=== PATIENT | male | born 1940 | race Caucasian/White ===

== ENCOUNTER 2016-03-19 11:22 | Emergency (ER) | payer OTHER ==
[~2016-03-19] VITALS: Ht 182.9 cm; Wt 78.6 kg
[~2016-03-19 11:22] MED LIST: ALBINS INH; CHOL100010 PO; CLX/20 PO; DILT300C PO; FAMO20TA9 PO; FINA5TAB4 PO; GLIP-197 PO; IPRA1AER2 INH; LEVE500T13 PO; LISI-729 PO; LPT40 PO; OXGN; PHEN-876 PO; PRED-301 PO; SITA50TA5 PO; SOLI5TAB2 PO; SYMIN160 INH; TAMS0.4C38 PO; TRAMTAB5 PO
[2016-03-19 11:30] VITALS: TEMP 36.6; Ht 182.9 cm; Wt 78.6 kg
[2016-03-19 11:58] LABS: HEMATOCRIT 38.2 % (42-52); MEAN CELL VOLUME 82.5 fL (80-100); MEAN CORPUSCULAR HEMOGLOBIN 25.7 pg (25-34); MEAN CORPUSCULAR HGB CONC 31.2 g/dl (32-36); MEAN PLATELET VOLUME 10.2 fL (7.4-10.4); PLATELET COUNT 196 K/uL (130-400); RED BLOOD COUNT 4.63 M/uL (4.7-6.1); WHITE BLOOD COUNT 17.41 K/uL (4.8-10.8)
[2016-03-19 12:06] LABS: BUN/CREATININE RATIO 17.1 (10-20); CALCIUM 8.6 mg/dl (8.5-10.1); CREATININE 1.4 mg/dl (0.60-1.40); POTASSIUM 4.2 mmol/L (3.5-5.1)
[2016-03-19 12:09] VITALS: O2SAT 100
--- NOTE | 2016-03-19 12:13 | EMERGENCY ROOM VISIT NOTE ---
History Report prepared by Scribe: Nils Martel Under the Supervision of: Dr. Joe Otero M.D. First contact with patient: 11:45 Chief Complaint: CHEST PAIN Stated Complaint: CHEST PRESSURE/NAUSEA/ SOB Nursing Triage Summary: chest pressure that started at 8 am with nausea and sob. Pressure relieved with 1 nitro and 4 baby asprins. History of Present Illness The patient is a 75 year old male who presents to the Emergency Room via EMS with complaints of persistent diffuse chest pain starting about 3 and a half hours ago. The patient also complains of shortness of breath, diffuse abdominal pain, and nausea. He received 1 nitro and 4 baby aspirins in route to the Emergency Room with some relief. He currently reports a mild chest pain. He denies any recent stress tests. The patient denies fevers, chills, or any other complaints. Source of History: patient Onset: about 3 and a half hours ago Position: chest (diffuse) Symptom Intensity: mild Timing: other (persistent) Modifying Factors (Relieving): other (1 nitro and 4 baby aspirins in route to the Emergency Room with some relief.) Associated Symptoms: + SOB, + abdominal pain, + nausea, No chills, No fevers Review of Systems See HPI for pertinent positives & negatives. A total of 10 systems reviewed and were otherwise negative. Past Medical & Surgical Medical Problems: (1) AAA (abdominal aortic aneurysm) (2) Anxiety (3) Aortic insufficiency (4) Aortic root enlargement (5) Benign hypertension (6) BPH (benign prostatic hypertrophy) (7) Cerebrovascular dural AV fistula (8) Chest pain (9) Chronic Kidney Disease, Stage Iii (Moderate) (10) COPD (chronic obstructive pulmonary disease) (11) Depression (12) Diabetic polyneuropathy (13) Diastolic heart failure (14) DM type 2 (diabetes mellitus, type 2) (15) Epilepsy Unspec W/O Mention Intractable Epilepsy (16) Esophageal Reflux (17) Fatty infiltration of liver (18) Femur fracture (19) GERD (gastroesophageal reflux disease) (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 (21) History of Clostridium difficile (22) History of CVA (cerebrovascular accident) (23) Hyperlipidemia Nec/Nos (24) Hypertensive urgency (25) Osteoarthritis (26) Osteoporosis Nos Surgical Problems: (1) H/O brain surgery (2) H/O colonoscopy with polypectomy (3) History of repair of hip fracture (4) S/P cataract surgery (5) S/p transcatheter placement of intravascular stents intracranial Family History Diabetes mellitus FH: chronic respiratory condition FH: heart disease Hypertension MOTHER Stroke MOTHER Social History Smoking Status: Former Smoker Alcohol Use: none Drug Use: none Marital Status: Housing Status: lives with significant other Occupation Status: retired Current/Historical Medications Scheduled Aspirin (Aspirin), 325 MG PO DAILY Atorvastatin (Atorvastatin Calcium), 40 MG PO HS Budesonide/Formoterol Fumarate (Symbicort 160/4.5 Inhaler ), 2 PUFFS INH BID Cholecalciferol (Vitamin D), 1 CAP PO QAM Citalopram (Citalopram Hydrobromide), 20 MG PO QAM Diltiazem Hcl Coated Beads (Diltiazem Hcl Er), 300 MG PO HS Famotidine (Pepcid), 20 MG PO Q12 Finasteride (Proscar), 5 MG PO HS Glipizide (Glipizide Er), 5 MG PO QAM Levetiracetam (Keppra), 750 MG PO BID Lisinopril (Zestril), 5 MG PO QAM Oxygen (Oxygen), 2 LITERS NA HS Prednisone (Prednisone), 5 MG PO QAM Sitagliptin-Metformin Hcl (Janumet), 1 TAB PO BID Solifenacin Succinate (Vesicare), 5 MG PO HS Tamsulosin Hcl (Flomax), 0.4 MG PO HS Scheduled PRN Albuterol Sulf (Albuterol Sulfate), 1 DOSE INH QID PRN for Shortness of Breath Ipratropium-Albuterol (Combivent Respimat), 1 PUFF INH QID PRN for SOB/Whz/Cough Allergies Coded Allergies: No Known Drug Allergy (Verified Allergy, Unknown, none, 03/19/16) Physical Exam Vital Signs Date Time Temp Pulse Resp B/P Pulse Ox O2 Delivery O2 Flow Rate FiO2 03/19/16 16:39 76 20 108/72 99 Nasal Cannula 2.0 03/19/16 16:27 78 20 99/66 98 Nasal Cannula 2.0 03/19/16 15:01 70 18 103/65 97 Nasal Cannula 2.0 03/19/16 14:56 78 84/61 03/19/16 14:47 83 110/67 03/19/16 14:45 85 22 125/73 97 Nasal Cannula 2.0 03/19/16 13:22 79 03/19/16 13:04 80 18 114/83 100 Nasal Cannula 2.0 03/19/16 12:09 100 Nasal Cannula 2.0 03/19/16 11:34 95 Room Air 03/19/16 11:34 81 03/19/16 11:30 36.6 84 18 117/82 95 Room Air Physical Exam CONSTITUTIONAL: No acute distress HEENT: No icterus, moist mucous membranes NECK: No meningismus, trachea is midline. CARDIOVASCULAR: Regular rate, normal perfusion RESPIRATORY: Unlabored breathing. Clear to auscultation. GASTROINTESTINAL: Non-tender GENITOURINARY: No flank tenderness MUSCULOSKELETAL: Full range of motion NEUROLOGIC: No acute gross focal deficits. PSYCHIATRIC: Normal affect SKIN: Normal for ethnicity. Medical Decision & Procedures ER Provider Diagnostic Interpretation: X-ray results as stated below per interpretation by me and the radiologist. CHEST ONE VIEW PORTABLE CLINICAL HISTORY: cp dyspnea COMPARISON STUDY: 10/03/2015 FINDINGS: The bones soft tissues and hemidiaphragms are normal. The cardiomediastinal silhouette is normal. The lungs are clear. The pulmonary vasculature is normal. IMPRESSION: Negative chest. Electronically signed by: Carlos Ahn M.D. 03/19/2016 12:09 PM Dictated Date/Time: 03/19/2016 12:[address] results as stated below per my review and radiologist interpretation. CT SCAN OF THE CHEST WITHOUT IV CONTRAST CLINICAL HISTORY: Dyspnea. Atypical chest pain. COMPARISON STUDY: Chest CT scans dated 05/19/2015 and 10/27/2012. TECHNIQUE: CT scan of the thorax was performed from the thoracic inlet to the upper abdomen. Images are reviewed in the axial, sagittal, and coronal planes. IV contrast was not administered for this examination as per the referring clinician. CT DOSE: 261.53 mGycm FINDINGS: Thyroid: Imaged portions of the thyroid gland are normal in size and attenuation. Thoracic aorta: There is atherosclerotic calcification of the thoracic aorta. There is aneurysmal dilatation of the ascending thoracic aorta which measures up to 5 cm in diameter. The aortic arch and the descending thoracic aorta normal in caliber. The mid arch measures up to 3.5 cm, and the descending thoracic aorta measures up to 3.1 cm. 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 There is a small volume of periaortic hemorrhage indicating leakage/rupture. There is also evidence of dissection into the pericardium with hemopericardium. The arch demonstrates standard 3-vessel arch anatomy. Heart: The heart is enlarged and and there is a moderate volume of hemopericardium. The coronary arteries and aortic valve leaflets are densely calcified. There is diminished attenuation of the cardiac blood pool as compared to the myocardium suggesting anemia. The main pulmonary arteries appear dilated suggesting pulmonary hypertension. Lungs and pleural spaces: There is advanced emphysema. There is a trace right pleural effusion, which has been seen previously. Focal subpleural scarring versus round atelectasis is again noted at the right lung base and is been present dating back to 2012. A 4 mm nodule in the right middle lobe on image #193 is unchanged. No airspace consolidation is identified typical for pneumonia. The trachea and central airways are clear. Mediastinum: There is no mediastinal lymphadenopathy. Jelly: Not well assessed without IV contrast. Axillae: There is no axillary lymphadenopathy. Upper abdomen: The partially imaged kidneys dementia cortical atrophy. A 4.0 cm cyst is noted in the left upper pole. A 1.5 cm cyst is noted in the right upper pole. There is a tiny hiatal hernia. Skeletal structures: The skeletal structures are osteopenic. No lytic or blastic bony lesions are seen. IMPRESSION: 1. 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 There is a small volume of periaortic hemorrhage indicating leakage/rupture. 2. Findings are consistent with a type A aortic dissection, with a flap identified on these unenhanced images. There is hemopericardium, indicating dissection into the pericardial space. 3. Cardiomegaly with evidence of pulmonary artery hypertension. 4. Advanced emphysema. 5. There is a trace right pleural effusion with chronic scarring/round atelectasis at the right lung base. This has been present dating back to 2012. 6. A 4 mm right middle lobe pulmonary nodule is unchanged from 05/19/2015. This can be followed if clinically warranted. See below. 7. Additional changes as above. Please refer to below summary of Fleischner criteria recommendations for follow-up of incidental CT nodules (Perico Fernández, Guidelines for management of small pulmonary nodules detected on CT scans: A statement from the Fleischner Society, Radiology 237: [phone].) Low Risk Patient: Minimal or no smoking or other known risk factors for malignancy <=4 mm: No follow-up needed. >4-6 mm: Initial follow-up CT at 12 months; if unchanged, no further follow-up. >6-8 mm: Initial follow-up CT at 6-12 months then at 18-24 months if no change. >8 mm: Follow-up CT at \R\3, 9, 24 months, or PET and/or biopsy. High Risk Patient: History of smoking or other known risk factors <=4 mm: Follow-up at 12 months; if unchanged, no further follow-up. >4-6 mm: Initial follow-up CT at 6-12 months then at 18-24 months if no change. >6-8 mm: Initial follow-up CT at 3-6 months then at 9-12 and 24 months if no change. >8 mm: Same as low risk patient. Note: Nodule size measured as average of length and width. Ground glass or partly solid nodules may require longer follow-up to exclude indolent adenocarcinoma. Emergent findings were called to Dr. Otero in the emergency department at 15:55 on 03/19/2016. Electronically signed by: Kishore Javier M.D. 03/19/2016 4:08 PM Dictated Date/Time: 03/19/2016 3:[address] SCAN OF THE ABDOMEN AND PELVIS WITHOUT CONTRAST CLINICAL HISTORY: abdominal pain NAUSEA COMPARISON STUDY: 01/06/2015 TECHNIQUE: CT scan of the abdomen and pelvis was performed from the lung bases to the proximal femurs. Images are reviewed in the axial, sagittal, and coronal planes. IV contrast was not administered for this examination. CT DOSE: 435.07 mGycm FINDINGS: Lower chest: The heart is mildly enlarged. There is a small pericardial effusion. There is emphysema. There are right basilar airspace opacities, likely atelectatic. Liver: The unenhanced liver is normal in size, contour, and attenuation. There is no intrahepatic biliary ductal dilatation. Gallbladder: Unremarkable. Spleen: Normal in size and attenuation. Pancreas: Unremarkable. Adrenal glands: Unremarkable. Kidneys: There is a 1 cm lower pole left renal calculus. No ureteral or bladder calculi are visualized. There are bilateral renal masses, likely representing cysts. The largest arises from the upper pole the left kidney measuring 34 mm. Bowel: There are no transition zones to indicate bowel obstruction. The appendix appears normal. There is mild fecal retention. There is no evidence of acute diverticulitis. There is mild fecal is age and of small bowel loops. This was present on the prior study and may indicate a motility disorder. Peritoneum: There is no intraperitoneal free air or abdominal ascites. There is subtle nonspecific edema in the region the kulwinder hepatis. Vasculature: There is a 31 mm infrarenal abdominal aortic aneurysm. Adenopathy: None. Pelvic viscera: There are prostate calcifications present. There is a small bladder diverticula present. Skeletal structures: There are postsurgical changes of a left hip pinning. IMPRESSION: 1. No evidence of bowel obstruction. No evidence of free air 2. Normal appendix 3. Small bowel feces sign. A motility disorder cannot be excluded 4. Fecal retention 5. Emphysema 6. Right basal airspace opacity possibly atelectatic 7. 31 mm infrarenal abdominal aortic aneurysm 8. Mild nonspecific edema in the region the kulwinder hepatis 9. 1 cm lower pole left renal calculus 10. Bilateral renal masses, likely representing cysts 11. Small pericardial effusion Electronically signed by: Pawan Parker M.D. 03/19/2016 3:49 PM Dictated Date/Time: 03/19/2016 3:42 PM Laboratory Results 03/19/16 11:40 Red Blood Count 4.63, Mean Corpuscular Volume 82.5, Mean Corpuscular Hemoglobin 25.7, Mean Corpuscular Hemoglobin Concent 31.2, Mean Platelet Volume 10.2 03/19/16 11:40 Test 03/19/16 11:40 03/19/16 12:16 03/19/16 14:02 03/19/16 17:00 White Blood Count 17.41 K/uL (4.8-10.8) Red Blood Count 4.63 M/uL (4.7-6.1) Hemoglobin 11.9 g/dL (14.0-18.0) Hematocrit 38.2 % (42-52) Mean Corpuscular Volume 82.5 fL (80-100) Mean Corpuscular Hemoglobin 25.7 pg (25-34) Mean Corpuscular Hemoglobin Concent 31.2 g/dl (32-36) Platelet Count 196 K/uL (130-400) Mean Platelet Volume 10.2 fL (7.4-10.4) RDW Standard Deviation 47.8 fL (36.4-46.3) RDW Coefficient of Variation 15.9 % (11.5-14.5) Neutrophils % (Manual) 84.1 % Lymphocytes % (Manual) 10.6 % Monocytes % (Manual) 3.5 % Eosinophils % (Manual) 0.9 % Myelocytes % 0.9 % Neutrophils # (Manual) 14.64 K/uL (1.4-6.5) Total Absolute Neutrophils 14.64 K/uL (1.4-6.5) Lymphocytes # (Manual) 1.85 K/uL (1.2-3.4) Total Absolute Lymphocytes 1.85 K/uL (1.2-3.4) Monocytes # (Manual) 0.61 K/uL (0.11-0.59) Eosinophils # (Manual) 0.16 K/uL (0-0.5) Myelocytes # 0.16 K/uL (0-0) Poikilocytosis PRESENT Anion Gap 9.0 mmol/L (3-11) Est Creatinine Clear Calc Drug Dose 49.3 ml/min Estimated GFR () 56.2 Estimated GFR (Non- 48.5 BUN/Creatinine Ratio 17.1 (10-20) Calcium Level 8.6 mg/dl (8.5-10.1) Prothrombin Time 11.5 SECONDS (9.0-12.0) Prothromb Time International Ratio 1.1 (0.9-1.1) Activated Partial Thromboplast Time 22.3 SECONDS (21.0-31.0) Partial Thromboplastin Ratio 0.9 Troponin I 0.071 ng/ml (0-0.045) Creatine Kinase MB Ratio (0-3.0) Labs reviewed by ED physician. Medications Administered Medications (Trade) Dose Ordered Sig/Roseann Route Start Time Stop Time Status Last Admin Dose Admin Ondansetron HCl (Zofran Inj) 4 mg NOW STAT IV 03/19/16 12:59 03/19/16 13:02 DC 03/19/16 13:05 4 MG Nitroglycerin (Nitrostat Tab) 0.4 mg STK-MED ONCE .ROUTE 03/19/16 14:36 03/19/16 14:37 DC 03/19/16 14:45 0.4 MG Ondansetron HCl (Zofran Inj) 4 mg Q6H PRN IV 03/19/16 15:15 03/19/16 18:34 DC 03/19/16 16:55 4 MG ECG Indication: chest pain Rate (beats per minute): 84 Rhythm: normal sinus Findings: nonspecific-ST abn, no ectopy, other (Normal axis) Change: Repeat EKG showed sinus rhythm, 83 beats per minute, nonspecific ST anterolateral changes. ED Course 1145: Past medical records reviewed. The patient was evaluated in room C01B. A complete history and physical examination was performed. 1259: Zofran Inj 4 mg IV 1342: I discussed the patient's case with [facility] Hospitalist Service. 1417: Upon reexamination the patient is resting comfortably. I discussed results and treatment plan with the patient. He verbalizes agreement and understanding. The patient will be evaluated for further management. I discussed the patient's case with Dr. Byers, polisher and buffer with [facility]. 1444: Dr. Byers is currently at bedside. 1555: Dr. Javier, radiologist with [facility], gave a verbal report of the patient's CT scan. 1614: I discussed the patient's case with Dr. Marino, Emergency Department Physician with [facility]. Currently arranging transportation. 1620: I spoke to the nursing supervisor grips about transferring the patient to [facility]. 1620: I discussed results and treatment plan with the patient and his family. I also discussed the patient's possible outcome due to his CT findings. They verbalize agreement and understanding. The patient will be transferred to [facility] for further management. 1704: The patient left via [facility] ground. Medical Decision Differential diagnosis includes but is not limited to heart disease. 75-year-old presented to the emergency room for evaluation of roughly 2 hours of mild retrosternal chest discomfort. He notes he has no discomfort at this time and suspects liver likely nothing going on. Patient minimization of his symptoms and quite normal demeanor interactions was concerning in the context of his age and past medical history. 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 Both he and his are uncertain about the risks and benefits as well as treatment decisions regarding his anticoagulation. His first troponin was noted to be normal with nonspecific EKG findings. On reexamination , patient continued to appear well and have no complaints although there was a nonspecific suspects qualities to his presentation for serious disease. I subsequently ordered a repeat EKG and second troponin about the same time admitting the patient to the hospital. He remained hemodynamically stable. I emphasized the patient that should he be having chest pain or concerns facility nursing staff know right away. Repeat EKG was concerning for lateral changes. Attending [facility] hospitalist physician was notified of this and consultation obtained with Dr. Byers who kindly came immediately to the patient's bedside. Second troponin noted to be elevated. I later received a call from radiologist with a verbal report of a thoracic dissection with extension into the pericardium. I immediately arranged transfer to [facility] where patient's prior records are located. Patient and no prior history of thoracic aneurysm which is been followed for a long time and for which no interventions were advised. I emphasized that the prognosis is poor despite our best efforts. Patient's pressure remained satisfactory while receiving IV fluids. 2 lines were obtained as a precautionary measure. Heart rate remained about 74. Esmolol drip prepared with clinical pharmacist (short acting) and provided to the transportation crew. It is noted that I was at the bedside at the time of departure and patient appeared well in no distress with normal vital signs. I discussed the esmolol drip was only to be used if systolic blood pressure can be kept above 100. Consults Time Called: 1340 Consulting Physician: [facility] Returned Call: 1342 I discussed the patient's case with [facility]. Additional Consults: Time Called: 1404 Consulted Physician: Dr. Byers, polisher and buffer with [facility] Returned Call: 1417 Additional Comments: I discussed the patient's case with Dr. Byers, polisher and buffer with [facility]. Time Called: 1610 Consulted Physician: Dr. Marino, Emergency Department Physician with [facility] Returned Call: 1616 Additional Comments: I discussed the patient's case with Dr. Marino, Emergency Department Physician with [facility]. Currently arranging transportation. Impression Primary Impression: Precordial chest pain Additional Impression: Dissection of aorta Critical Care I have personally spent greater than 60 minutes of critical care time in the direct management of this patient. This includes bedside care, interpretation of diagnostic studies, and testing, discussion with consultants, patient, and family members, and other required patient management activities. This 60 minutes is in excess of all separately billable procedures. Scribe Attestation The scribe's documentation has been prepared under my direction and personally reviewed by me in its entirety. I confirm that the note above accurately reflects all work, treatment, procedures, and medical decision making performed by me. Departure Information Dispostion Transfer Acute Care Facility Referrals Mehreen Walton M.D. (PCP) Patient Instructions My [facility] Problem Qualifiers
[2016-03-19] MEDS ORDERED: CHOL100010 PO (12:18)
[2016-03-19 12:25] LABS: COMPLETE YES; EOSINOPHIL % 0.9 %; LYMPH ABS # 1.85 K/uL (1.2-3.4); LYMPHOCYTE % 10.6 %; MYELOCYTE % 0.9 %; NEUTROPHILS % 84.1 %; POIKILOCYTOSIS PRESENT
[2016-03-19 12:41] LABS: INR 1.1 (0.9-1.1); PARTIAL THROMBOPLASTIN RATIO 0.9; PROTHROMBIN TIME (PATIENT) 11.5 SECONDS (9.0-12.0)
[2016-03-19] MEDS ORDERED: ONDANSETRON INJ 2 MG/ML 2 ML VIAL IV STA (12:59)
[2016-03-19] MEDS ORDERED: NITROGLYCERIN 0.4 MG SL PER TAB CHARGE ONE (14:36)
[2016-03-19] MEDS ORDERED: ONDANSETRON INJ 2 MG/ML 2 ML VIAL IV PRN (15:15)
[2016-03-19] MEDS ORDERED: ACETAMINOPHEN 325 MG TAB PO PRN (15:15)
[2016-03-19] MEDS ORDERED: NITROGLYCERIN 0.4 MG SL PER TAB CHARGE SL PRN (15:15)
[2016-03-19] MEDS ORDERED: KPP/750 PO (15:19)
[2016-03-19] MEDS ORDERED: ASPI325T4 PO (15:25)
[2016-03-19] MEDS ORDERED: GLUCAGON FOR INJ 1 MG VIAL SQ PRN (15:30)
[2016-03-19] MEDS ORDERED: DEXTROSE 50% 50 ML SYR IV PRN (15:30)
[2016-03-19] MEDS ORDERED: GLUCOSE 10 TABS/TUBE PO PRN (15:30)
[2016-03-19] MEDS ORDERED: GLUCOSE 40% GEL 15 GM TUBE PO PRN (15:30)
[2016-03-19] MEDS ORDERED: PHARMACY GLYCEMIC MGMT CONSULT PRN (15:31)
--- NOTE | 2016-03-19 15:50 | DIAGNOSTIC IMAGING REPORT ---
CT SCAN OF THE ABDOMEN AND PELVIS WITHOUT CONTRAST CLINICAL HISTORY: abdominal pain NAUSEA COMPARISON STUDY: 01/06/2015 TECHNIQUE: CT scan of the abdomen and pelvis was performed from the lung bases to the proximal femurs. Images are reviewed in the axial, sagittal, and coronal planes. IV contrast was not administered for this examination. CT DOSE: 435.07 mGycm FINDINGS: Lower chest: The heart is mildly enlarged. There is a small pericardial effusion. There is emphysema. There are right basilar airspace opacities, likely atelectatic. Liver: The unenhanced liver is normal in size, contour, and attenuation. There is no intrahepatic biliary ductal dilatation. Gallbladder: Unremarkable. Spleen: Normal in size and attenuation. Pancreas: Unremarkable. Adrenal glands: Unremarkable. Kidneys: There is a 1 cm lower pole left renal calculus. No ureteral or bladder calculi are visualized. There are bilateral renal masses, likely representing cysts. The largest arises from the upper pole the left kidney measuring 34 mm. Bowel: There are no transition zones to indicate bowel obstruction. The appendix appears normal. There is mild fecal retention. There is no evidence of acute diverticulitis. There is mild fecal is age and of small bowel loops. This was present on the prior study and may indicate a motility disorder. Peritoneum: There is no intraperitoneal free air or abdominal ascites. There is subtle nonspecific edema in the region the kulwinder hepatis. Vasculature: There is a 31 mm infrarenal abdominal aortic aneurysm. Adenopathy: None. Pelvic viscera: There are prostate calcifications present. There is a small bladder diverticula present. Skeletal structures: There are postsurgical changes of a left hip pinning. IMPRESSION: 1. No evidence of bowel obstruction. No evidence of free air 2. Normal appendix 3. Small bowel feces sign. A motility disorder cannot be excluded 4. Fecal retention 5. Emphysema 6. Right basal airspace opacity possibly atelectatic 7. 31 mm infrarenal abdominal aortic aneurysm 8. Mild nonspecific edema in the region the kulwinder hepatis 9. 1 cm lower pole left renal calculus 10. Bilateral renal masses, likely representing cysts 11. Small pericardial effusion Electronically signed by: Pawan Parker M.D. 03/19/2016 3:49 PM Dictated Date/Time: 03/19/2016 3:42 PM
[2016-03-19] MEDS ORDERED: INSULIN ASPART 100 UNITS/ML 3 ML PEN SC SCH (16:00)
--- NOTE | 2016-03-19 16:01 | Pharmacy Progress Note ---
Glycemic Control Intl Consult Date of Service Mar 19, 2016. Scope Glycemic Pharmacist consulted by Adelaida Don on 03/19/16 for glycemic control and to write orders per [facility] inpatient glycemic control protocol Objective Weight (Kilograms): 78.600 Accuchecks BSG (last 24hrs): Test 03/19/16 11:40 Random Glucose 260 mg/dl (70-99) Laboratory Data (last 24hrs) Test 03/19/16 11:40 Anion Gap 9.0 mmol/L BUN/Creatinine Ratio 17.1 Blood Urea Nitrogen 24 mg/dl Creatinine 1.40 mg/dl Potassium Level 4.2 mmol/L Sodium Level 137 mmol/L White Blood Count 17.41 K/uL Red Blood Count 4.63 M/uL Hemoglobin 11.9 g/dL Hematocrit 38.2 % Mean Corpuscular Volume 82.5 fL Mean Corpuscular Hemoglobin 25.7 pg Mean Corpuscular Hemoglobin Concent 31.2 g/dl Platelet Count 196 K/uL Mean Platelet Volume 10.2 fL Recent Pertinent Medications Outpatient Anti-diabetic Regimen: * glipizide ER 5mg PO daily * sitagliptin/metformin 50/1000mg 1 tab PO BID *Prednisone 5mg PO daily * A1c = 9.6 % 11/2015 *outdated The patient is currently receiving: * Basal insulin: none at this time * Correctional Insulin: NovoLog Correction per scale AC/HS Goal Range: Low 120 mg/dL - High 160 mg/dL Correction Factor: 55 mg/dL/unit * Prandial insulin: Per carb ratio of 1 unit per 19 grams CHO consumed * Oral Agents: on hold for admission Risk Factors for Insulin Resistance: * Steroids: Prednisone 5mg PO daily (home medication) * Diet: T2DM/AHA Assessment & Plan ASSESSMENT: * ADA & AACE recommend a goal blood sugar range 140-180 mg/dl for the majority of critically ill & non-critically ill patients. However, more stringent targets may be selected in individual cases. 03/19/16 * 75 y/o type 2 diabetic who uses PO medications for glycemic control as an outpatient. A1c is slightly outdated, but may indicate less than adequate glycemic control for Mr. Penny. * During his last admission, bolus NovoLog was utilized to control BSGs, however the parameters do not appear to have been aggressive enough * BSG on admission, though a random level, was elevated. * Sliding scale insulin was ordered by the admitting provider and this will be continued with slight change to parameters based on weight and insulin calculator * Home oral medications were held for admission. * A1c is slightly outdated * order new A1c with AM labs on 03/20 * Mr. Penny also takes daily prednisone at home * this has been continued on admission - monitoring of post-prandial BSGs for steroid induced hyperglycemia. PLAN FOR INPATIENT GLYCEMIC CONTROL: * Basal insulin: continue to hold at this time * Bolus insulin: Continue NovoLog AC and HS * Correction factor: 35mg/dL/unit * Carb ratio: 1 unit per 15g of CHO consumed * Goal range: 140-180mg/dL per ADA recommendations * A1c - ordered with AM labs * added to discharge instructions * Please note that the plan above was derived based on current level of insulin resistance and hospital stress. These recommendations are appropriate for inpatient admission only. Plan of care upon discharge will need to be reassessed to avoid potential outpatient hypo/hyperglycemia. Thank you.
[2016-03-19] MEDS ORDERED: METOPROLOL TARTRATE 25 MG TAB PO SCH ×2 (16:04→18:00)
--- NOTE | 2016-03-19 16:10 | DIAGNOSTIC IMAGING REPORT ---
CT SCAN OF THE CHEST WITHOUT IV CONTRAST CLINICAL HISTORY: Dyspnea. Atypical chest pain. COMPARISON STUDY: Chest CT scans dated 05/19/2015 and 10/27/2012. TECHNIQUE: CT scan of the thorax was performed from the thoracic inlet to the upper abdomen. Images are reviewed in the axial, sagittal, and coronal planes. IV contrast was not administered for this examination as per the referring clinician. CT DOSE: 261.53 mGycm FINDINGS: Thyroid: Imaged portions of the thyroid gland are normal in size and attenuation. Thoracic aorta: There is atherosclerotic calcification of the thoracic aorta. There is aneurysmal dilatation of the ascending thoracic aorta which measures up to 5 cm in diameter. The aortic arch and the descending thoracic aorta normal in caliber. The mid arch measures up to 3.5 cm, and the descending thoracic aorta measures up to 3.1 cm. 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 There is a small volume of periaortic hemorrhage indicating leakage/rupture. There is also evidence of dissection into the pericardium with hemopericardium. The arch demonstrates standard 3-vessel arch anatomy. Heart: The heart is enlarged and and there is a moderate volume of hemopericardium. The coronary arteries and aortic valve leaflets are densely calcified. There is diminished attenuation of the cardiac blood pool as compared to the myocardium suggesting anemia. The main pulmonary arteries appear dilated suggesting pulmonary hypertension. Lungs and pleural spaces: There is advanced emphysema. There is a trace right pleural effusion, which has been seen previously. Focal subpleural scarring versus round atelectasis is again noted at the right lung base and is been present dating back to 2012. A 4 mm nodule in the right middle lobe on image #193 is unchanged. No airspace consolidation is identified typical for pneumonia. The trachea and central airways are clear. Mediastinum: There is no mediastinal lymphadenopathy. Jelly: Not well assessed without IV contrast. Axillae: There is no axillary lymphadenopathy. Upper abdomen: The partially imaged kidneys dementia cortical atrophy. A 4.0 cm cyst is noted in the left upper pole. A 1.5 cm cyst is noted in the right upper pole. There is a tiny hiatal hernia. Skeletal structures: The skeletal structures are osteopenic. No lytic or blastic bony lesions are seen. IMPRESSION: 1. 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 There is a small volume of periaortic hemorrhage indicating leakage/rupture. 2. Findings are consistent with a type A aortic dissection, with a flap identified on these unenhanced images. There is hemopericardium, indicating dissection into the pericardial space. 3. Cardiomegaly with evidence of pulmonary artery hypertension. 4. Advanced emphysema. 5. There is a trace right pleural effusion with chronic scarring/round atelectasis at the right lung base. This has been present dating back to 2012. 6. A 4 mm right middle lobe pulmonary nodule is unchanged from 05/19/2015. This can be followed if clinically warranted. See below. 7. Additional changes as above. Please refer to below summary of Fleischner criteria recommendations for follow-up of incidental CT nodules (Perico Fernández, Guidelines for management of small pulmonary nodules detected on CT scans: A statement from the Fleischner Society, Radiology 237: [phone].) Low Risk Patient: Minimal or no smoking or other known risk factors for malignancy <=4 mm: No follow-up needed. >4-6 mm: Initial follow-up CT at 12 months; if unchanged, no further follow-up. >6-8 mm: Initial follow-up CT at 6-12 months then at 18-24 months if no change. >8 mm: Follow-up CT at \R\3, 9, 24 months, or PET and/or biopsy. High Risk Patient: History of smoking or other known risk factors <=4 mm: Follow-up at 12 months; if unchanged, no further follow-up. >4-6 mm: Initial follow-up CT at 6-12 months then at 18-24 months if no change. >6-8 mm: Initial follow-up CT at 3-6 months then at 9-12 and 24 months if no change. >8 mm: Same as low risk patient. Note: Nodule size measured as average of length and width. Ground glass or partly solid nodules may require longer follow-up to exclude indolent adenocarcinoma. Emergent findings were called to Dr. Otero in the emergency department at 15:55 on 03/19/2016. Electronically signed by: Kishore Javier M.D. 03/19/2016 4:08 PM Dictated Date/Time: 03/19/2016 3:52 PM
[2016-03-19] MEDS ORDERED: NITROGLYCERIN OINT 2% 1GM PACKET EXT SCH (16:15)
--- NOTE | 2016-03-19 16:30 | ECHOCARDIOGRAM REPORT ---
*NOTICE TO RECEIVING CONSTITUTION PARTY AGENCY This information is strictly Confidential and protected under [place] law. [place] law prohibits you from making any further disclosure of this information unless further disclosure is expressly permitted by the written consent of the person to whom it pertains or is authorized by law. A general authorization for the release of medical or other information is not sufficient for this purpose. Hospital accepts no responsibility if the information is made available to any other person, INCLUDING THE PATIENT. Interpretation Summary * Name: GORDON MELÉNDEZ Study Date: 03/19/2016 02:49 PM BP: 103/65 mmHg * Patient Location: [facility] HR: 70 * : 1940 (M/d/yyyy) Gender: Male Height: 72 in * Age: 75 yrs Ethnicity: CA Weight: 173 lb * Ordering Physician: Joe Otero * Performed By: Katia Tanner RDCS * * Reason For Study: Rule out CAD * BSA: 2.0 m2 * -- Conclusions -- * Normal LV chamber size with mild concentric LVH. * Normal LV systolic function, EF 60-65%. * No segmental left ventricular wall motion abnormalities are noted. * Grade I diastolic dysfunction. * The right ventricular cavity size is normal (basal dimension <4.2 cm in right ventricular apical 4-chamber view). * The right ventricular systolic function is reduced as assessed by tricuspid annular plane systolic excursion (TAPSE) (TAPSE <1.6 cm). * Aortic valve sclerosis mild, without significant aortic valvular stenosis. Mild aortic regurgitation. * Borderline mitral valve prolapse. * Small, loculated anterior pericardial effusion without hemodynamic significance. Stranding is present to suggest chronicity. Procedure Details * A complete two-dimensional transthoracic echocardiogram was performed (2D, M-mode, Doppler and color flow Doppler). Left Ventricle * The left ventricle is normal in size. * There is mild concentric left ventricular hypertrophy. * Ejection Fraction = 60-65%. * Left ventricular systolic function is normal. * No segmental left ventricular wall motion abnormalities are noted. * The left ventricular wall motion is normal. Right Ventricle * The right ventricular cavity size is normal (basal dimension <4.2 cm in right ventricular apical 4-chamber view). * The right ventricular systolic function is reduced as assessed by tricuspid annular plane systolic excursion (TAPSE) (TAPSE <1.6 cm). Atria * The left atrial size is normal. * Right atrial size is normal. * No ASD detected; PFO is not assessed. Mitral Valve * There is borderline mitral valve prolapse. * There is no mitral valve stenosis. * There is no mitral regurgitation noted. Tricuspid Valve * The tricuspid valve is normal in structure and function. Aortic Valve * The aortic valve is trileaflet. * Aortic valve sclerosis mild, without significant aortic valvular stenosis. * Mild aortic regurgitation. Pulmonic Valve * The pulmonary valve is not well seen, but the Doppler examination is normal without significant regurgitation or stenosis. Great Vessels * The aortic root and proximal ascending aorta are normal sized. Pericardium/Pleural * Small pericardial effusion. * A loculated pericardial effusion is noted. * Pericardial fibrinous strands are noted. Left Ventricular Diastolic Function * Grade I diastolic dysfunction, (abnormal relaxation pattern). MMode 2D Measurements and Calculations IVSd 1.2 cm LVIDd 3.6 cm LVIDs 2.7 cm LVPWd 0.98 cm IVS/LVPW 1.2 FS 26.4 % EDV(Teich) 54.4 ml ESV(Teich) 25.8 ml EF(Teich) 52.6 % EDV(cubed) 46.7 ml ESV(cubed) 18.6 ml EF(cubed) 60.1 % LV mass(C)d 120.3 grams LV mass(C)dI 60.1 grams/m\S\2 SV(Teich) 28.6 ml SI(Teich) 14.3 ml/m\S\2 SV(cubed) 28.0 ml SI(cubed) 14.0 ml/m\S\2 LVAd ap4 21.1 cm\S\2 LVLd ap4 8.0 cm EDV(MOD-sp4) 44.1 ml EDV(sp4-el) 47.0 ml LVAs ap4 12.6 cm\S\2 LVLs ap4 6.9 cm ESV(MOD-sp4) 19.5 ml ESV(sp4-el) 19.5 ml EF(MOD-sp4) 55.9 % EF(sp4-el) 58.5 % LVAd ap2 23.5 cm\S\2 LVLd ap2 8.5 cm EDV(MOD-sp2) 54.1 ml EDV(sp2-el) 55.4 ml LVAs ap2 14.0 cm\S\2 LVLs ap2 6.4 cm ESV(MOD-sp2) 25.5 ml ESV(sp2-el) 26.0 ml EF(MOD-sp2) 53.0 % EF(sp2-el) 53.2 % LVLd %diff 5.5 % EDV(MOD-bp) 48.7 ml LVLs %diff -7.33 % ESV(MOD-bp) 23.1 ml EF(MOD-bp) 52.6 % SV(MOD-sp4) 24.6 ml SI(MOD-sp4) 12.3 ml/m\S\2 SV(MOD-sp2) 28.7 ml SI(MOD-sp2) 14.3 ml/m\S\2 SV(MOD-bp) 25.6 ml SI(MOD-bp) 12.8 ml/m\S\2 SV(sp4-el) 27.5 ml SI(sp4-el) 13.7 ml/m\S\2 SV(sp2-el) 29.5 ml SI(sp2-el) 14.7 ml/m\S\2 Doppler Measurements and Calculations MV E max antonio 63.7 cm/sec MV A max antonio 77.0 cm/sec MV E/A 0.83 MV dec time 0.31 sec Ao V2 max 103.4 cm/sec Ao max PG 4.3 mmHg Ao max PG (full) 0.76 mmHg AI max antonio 288.8 cm/sec AI max PG 33.4 mmHg AI dec slope 68.2 cm/sec\S\2 AI P1/2t 1240.4 msec LV V1 max PG 3.5 mmHg LV V1 max 93.8 cm/sec PA V2 max 93.1 cm/sec PA max PG 3.5 mmHg PA acc slope 399.7 cm/sec\S\2 PA acc time 0.17 sec TR max antonio 80.8 cm/sec PA pr(Accel) 4.5 mmHg
[2016-03-19 16:39] VITALS: BP 108/72; PULSE 76; O2SAT 99
[2016-03-19] MEDS ORDERED: ESMOLOL IV PRN (16:45)
[2016-03-19] MEDS ORDERED: NSS IV PRN (16:45)
--- NOTE | 2016-03-19 17:05 | Medical Consult ---
Consultation Date of Consultation: Mar 19, 2016. Attending Physician: Dr. Clarke Reason for Consultation: Chest Pain, Evaluation for Admission History of Present Illness 75 year old male who presented to the ER with reports of chest pain. Patient reports his chest pain developed this morning. He describes it as going across his entire chest and pressure like sensation. He rates the pain #9/10 at it's worst. He also had associated shortness of breath, diaphoresis, nausea, and near syncope. He reports the pain has eased up since arriving to the ER however is still present and initially rated it #/3/10 however later during my exam he reported it was worsening to #7/10. He denies abdominal pain, nausea, vomiting, or diarrhea. No recent illnesses, fever, or chills. He denies any urinary symptoms. In the ER, patient's initial troponin was negative and EKG did not show any acute changes. Due to patient's persistent chest pain, an urgent cardiology consult was requested and patient had a bedside echo preformed. No significant wall motion abnormalities were noted. A CT chest/abdomen was ordered to evaluate for dissection and it did show a 5.0 cm aneurysm of the ascending thoracic aorta. There is a small volume of periaortic hemorrhage indicating leakage/rupture. Findings are consistent with a type A aortic dissection, with a flap identified on these unenhanced images. There is hemopericardium, indicating dissection into the pericardial space. Patient will be transferred to [facility]. 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 (8) Chronic Kidney Disease, Stage Iii (Moderate) Status: Chronic (9) COPD (chronic obstructive pulmonary disease) Status: Chronic (10) Depression Status: Chronic (11) Diabetic polyneuropathy Status: Chronic (12) Diastolic heart failure Status: Chronic (13) DM type 2 (diabetes mellitus, type 2) Status: Chronic (14) Epilepsy Unspec W/O Mention Intractable Epilepsy Status: Chronic (15) Esophageal Reflux Status: Chronic (16) Fatty infiltration of liver Status: Chronic (17) Femur fracture Status: Resolved (18) GERD (gastroesophageal reflux disease) Status: Chronic (19) h/o pseudo aneurysm R MCA Status: Chronic (20) History of Clostridium difficile Status: Chronic (21) History of CVA (cerebrovascular accident) Status: Chronic (22) Hyperlipidemia Nec/Nos Status: Chronic (23) Osteoarthritis Status: Chronic (24) Osteoporosis Nos Status: Chronic Surgical Problems: (1) 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 Status: Resolved (2) H/O colonoscopy with polypectomy Permanent Comment: 11/2011- tubular adenoma Status: Resolved (3) History of repair of hip fracture Status: Resolved (4) S/P cataract surgery Status: Resolved (5) S/p transcatheter placement of intravascular stents intracranial Status: Resolved Family History Diabetes mellitus FH: chronic respiratory condition FH: heart disease Hypertension MOTHER Stroke MOTHER Social History Smoking Status: Former Smoker Alcohol Use: none Marital Status: Housing Status: lives with significant other Allergies Coded Allergies: No Known Drug Allergy (Verified Allergy, Unknown, none, 03/19/16) Home Medications Aspirin 325 Mg Tab 325 Mg PO DAILY Keppra (Levetiracetam) 750 Mg Tab 750 Mg PO BID Vitamin D (Cholecalciferol) 1,000 Unit Tab 1 Cap PO QAM Pepcid (Famotidine) 20 Mg Tab 20 Mg PO Q12 Symbicort 160/4.5 Inhaler (Budesonide/Formoterol Fumarate) Aero 2 Puffs INH BID Prednisone 5 Mg Tab 5 Mg PO QAM Zestril (Lisinopril) 5 Mg Tab 5 Mg PO QAM Albuterol Sulfate (Albuterol Sulf) 2.5 Mg/3 Ml Nebu 1 Dose INH QID PRN Oxygen Gas 2 Liters NA HS HS and PRN Vesicare (Solifenacin Succinate) 5 Mg Tab 5 Mg PO HS Proscar (Finasteride) 5 Mg Tab 5 Mg PO HS Diltiazem Hcl Er (Diltiazem Hcl Coated Beads) 300 Mg Cap 300 Mg PO HS Glipizide Er (Glipizide) 5 Mg Tab 5 Mg PO QAM Flomax (Tamsulosin Hcl) 0.4 Mg Cap 0.4 Mg PO HS TAKE THIS MEDICATION ONCE DAILY AFTER A MEAL. Combivent Respimat (Ipratropium-Albuterol) 1 Aer Aer 1 Puff INH QID PRN Atorvastatin Calcium (Atorvastatin) 40 Mg Tab 40 Mg PO HS Janumet (Sitagliptin-Metformin Hcl) 1 Tab Tab 1 Tab PO BID 50-1000 Citalopram Hydrobromide (Citalopram) 20 Mg Tab 20 Mg PO QAM Current Inpatient Medications Current Inpatient Medications Medications (Trade) Dose Ordered Sig/Roseann Route Start Time Stop Time Status Last Admin Dose Admin Acetaminophen (Tylenol Tab) 650 mg Q4H PRN PO 03/19/16 15:15 04/18/16 15:14 Ondansetron HCl (Zofran Inj) 4 mg Q6H PRN IV 03/19/16 15:15 04/18/16 15:14 Nitroglycerin (Nitrostat Tab) 0.4 mg UD PRN SL 03/19/16 15:15 04/18/16 15:14 Aspirin (Ecotrin Tab) 325 mg DAILY PO 03/20/16 09:00 04/19/16 08:59 Atorvastatin Calcium (Lipitor Tab) 40 mg HS PO 03/19/16 21:00 04/18/16 20:59 Budesonide/ Formoterol Fumarate (Symbicort 160/ 4.5 Inh) 2 puffs BID INH 03/19/16 21:00 04/18/16 20:59 Cholecalciferol (Vitamin D Tab) 1,000 inter.unit QAM PO 03/20/16 09:00 04/19/16 08:59 Citalopram Hydrobromide (celeXA TAB) 20 mg QAM PO 03/20/16 09:00 04/19/16 08:59 Famotidine (Pepcid Tab) 20 mg Q12 PO 03/19/16 21:00 04/18/16 20:59 Finasteride (Proscar Tab) 5 mg HS PO 03/19/16 21:00 04/18/16 20:59 Levetiracetam (Keppra Tab) 750 mg BID PO 03/19/16 21:00 04/18/16 20:59 Lisinopril (Zestril Tab) 5 mg QAM PO 03/20/16 09:00 04/19/16 08:59 Prednisone (PredniSONE TAB) 5 mg QAM PO 03/20/16 09:00 04/19/16 08:59 Tamsulosin HCl (Flomax Cap) 0.4 mg HS PO 03/19/16 21:00 04/18/16 20:59 Miscellaneous Information (Order Awaiting Action) 1 ea QS N/A 03/20/16 00:00 04/19/16 00:00 Insulin Aspart (novoLOG ASPART) SLIDING SCALE If C... ACHS SC 03/19/16 16:00 04/18/16 15:59 Glucose (Glucose 40% Gel) 15-30 GRAMS 15 GRAMS... UD PRN PO 03/19/16 15:30 04/18/16 15:29 Glucose (Glucose Chew Tab) 4-8 Tablets 4 Tabl... UD PRN PO 03/19/16 15:30 04/18/16 15:29 Dextrose (Dextrose 50% 50ML Syringe) 25-50ML OF 50% DW IV FOR... UD PRN IV 03/19/16 15:30 04/18/16 15:29 Glucagon (Glucagon Inj) 1 mg UD PRN SQ 03/19/16 15:30 04/18/16 15:29 Miscellaneous Information (Consult Glycemic Management Pharmacy) 1 ea UD PRN N/A 03/19/16 15:31 04/18/16 15:30 Nitroglycerin (Nitroglycerin 2% Oint) 0.5 inch Q6H EXT 03/19/16 16:15 04/18/16 16:14 UNV Metoprolol Tartrate (Lopressor Tab) 12.5 mg Q6 PO 03/19/16 18:00 04/18/16 17:59 UNV Metoprolol Tartrate (Lopressor Tab) 12.5 mg 1604 PO 03/19/16 16:04 03/19/16 16:05 UNV Heparin Sodium/ Dextrose 1 ea 1 ea Q15M N/A 03/19/16 16:13 04/18/16 16:12 Esmolol HCl/Prmx (Brevibloc/ Premixed Nss) 250 ml @ 0 mls/hr Q0M PRN IV 03/19/16 16:45 04/18/16 16:44 Review of Systems 10 point review of systems was completed with the pertinent positives and negatives noted per the HPI Physical Exam Date Time Temp Pulse Resp B/P Pulse Ox O2 Delivery O2 Flow Rate FiO2 03/19/16 16:39 76 20 108/72 99 Nasal Cannula 2.0 03/19/16 16:27 78 20 99/66 98 Nasal Cannula 2.0 03/19/16 15:01 70 18 103/65 97 Nasal Cannula 2.0 03/19/16 14:56 78 84/61 03/19/16 14:47 83 110/67 03/19/16 14:45 85 22 125/73 97 Nasal Cannula 2.0 03/19/16 13:22 79 03/19/16 13:04 80 18 114/83 100 Nasal Cannula 2.0 03/19/16 12:09 100 Nasal Cannula 2.0 03/19/16 11:34 95 Room Air 03/19/16 11:34 81 03/19/16 11:30 36.6 84 18 117/82 95 Room Air General Appearance: no apparent distress Head: normocephalic Eyes: normal inspection ENT: hearing grossly normal Neck: supple, no JVD Respiratory/Chest: chest non-tender, lungs clear, normal breath sounds, no respiratory distress Cardiovascular: regular rate, rhythm, no edema, normal peripheral pulses Abdomen/GI: normal bowel sounds, non tender, soft Extremities/Musculoskelatal: normal inspection, no calf tenderness Neurologic/Psych: no motor/sensory deficits, alert, normal mood/affect, oriented x 3 Skin: normal color, warm/dry Laboratory Results Last 24 Hours Test 03/19/16 11:40 03/19/16 12:16 03/19/16 14:02 White Blood Count 17.41 K/uL Red Blood Count 4.63 M/uL Hemoglobin 11.9 g/dL Hematocrit 38.2 % Mean Corpuscular Volume 82.5 fL Mean Corpuscular Hemoglobin 25.7 pg Mean Corpuscular Hemoglobin Concent 31.2 g/dl Platelet Count 196 K/uL Mean Platelet Volume 10.2 fL RDW Standard Deviation 47.8 fL RDW Coefficient of Variation 15.9 % Neutrophils % (Manual) 84.1 % Lymphocytes % (Manual) 10.6 % Monocytes % (Manual) 3.5 % Eosinophils % (Manual) 0.9 % Myelocytes % 0.9 % Neutrophils # (Manual) 14.64 K/uL Total Absolute Neutrophils 14.64 K/uL Lymphocytes # (Manual) 1.85 K/uL Total Absolute Lymphocytes 1.85 K/uL Monocytes # (Manual) 0.61 K/uL Eosinophils # (Manual) 0.16 K/uL Myelocytes # 0.16 K/uL Poikilocytosis PRESENT Sodium Level 137 mmol/L Potassium Level 4.2 mmol/L Chloride Level 102 mmol/L Carbon Dioxide Level 26 mmol/L Anion Gap 9.0 mmol/L Blood Urea Nitrogen 24 mg/dl Creatinine 1.40 mg/dl Est Creatinine Clear Calc Drug Dose 49.3 ml/min Estimated GFR () 56.2 Estimated GFR (Non- 48.5 BUN/Creatinine Ratio 17.1 Random Glucose 260 mg/dl Calcium Level 8.6 mg/dl Troponin I 0.033 ng/ml 0.071 ng/ml Prothrombin Time 11.5 SECONDS Prothromb Time International Ratio 1.1 Activated Partial Thromboplast Time 22.3 SECONDS Partial Thromboplastin Ratio 0.9 Assessment & Plan 75 year old male who presented to the ER with chest pain concerning for ACS. CT chest obtained that showed type A aortic dissection. Patient will be transferred to [facility] for further care. Transfer being arranged by ER, Dr. Gupta. ATTENDING ADDENDUM Record reviewed. Patient interviewed and examined. I agree with the assessment and plan as stated. Care coordinated with GEORGES Alegre. Please refer to her documentation for patient's history. Alma Clarke DO [facility]
[2016-03-19] MEDS ORDERED: TAMSULOSIN HCL 0.4 MG CAP PO SCH (21:00)
[2016-03-19] MEDS ORDERED: ATORVASTATIN 40 MG TAB PO SCH (21:00)
[2016-03-19] MEDS ORDERED: BUDESONIDE/FORMOTEROL FUMARATE 160/4.5 60 PUFFS/INHALER INH SCH (21:00)
[2016-03-19] MEDS ORDERED: LEVETIRACETAM 250 MG TAB PO SCH (21:00)
[2016-03-19] MEDS ORDERED: FAMOTIDINE 20 MG TAB PO SCH (21:00)
[2016-03-19] MEDS ORDERED: DILTIAZEM HCL 300 MG CAPCR PO SCH (21:00)
[2016-03-19] MEDS ORDERED: FINASTERIDE 5 MG TAB PO SCH (21:00)
--- NOTE | 2016-03-19 22:20 | CARDIOLOGY CONSULTATION ---
DATE OF CONSULTATION: 03/19/2016 CONSULTATION REQUESTED BY: Dr. Otero REASON FOR CONSULTATION: Chest pain with minimally elevated troponin. HISTORY OF PRESENT ILLNESS: Mr. Penny is a very pleasant 75-year-old gentleman, who has never been seen by cardiology before. He presented to [facility] today with a complaint of chest and abdominal pain. The patient states when he woke up this morning, he noticed he had a tightness radiating across his chest and down into his abdomen. He described this as severe, 7/10, was associated with some lightheadedness, diaphoresis, occasional shortness of breath and some presyncope; however, he denies ever fully losing consciousness. The symptoms waxed and waned for several hours and his finally brought him to the Emergency Department. In the Emergency Department, initial EKG was unremarkable as was his troponin. Followup troponin was very minimally elevated. An EKG was repeated at that time which showed concave nonischemic ST segment elevations in the lateral leads and cardiology was consulted. The patient was seen and examined in the Emergency Department. At that time, he was still having 7/10 chest pain. EKG was repeated during the pain, still with unchanged concave elevations that were nonischemic. He was given sublingual nitroglycerin which resolved his chest and abdominal pain after two tablets. His blood pressure lowered a little bit and he was given 500 mL of normal saline. A bedside echocardiogram was performed which showed no wall motion abnormalities and again the patient was symptom free after receiving two nitroglycerins. PAST SURGICAL HISTORY: 1. 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 2. Pipeline stenting of right MCA dissection requiring followup tPA and abciximab secondary to medical noncompliance. 3. Hip ORIF. 4. Cataract surgery. 5. Colonoscopy. MEDICAL ILLNESSES: 1. AV malformation. 2. Spontaneous MCA dissection, status post stenting. 3. Stent closure secondary to medical noncompliance. 4. Severe COPD. 5. Diabetes. 6. Stage 3 chronic kidney disease. 7. Diastolic dysfunction with normal LV systolic function. 8. Seizure disorder. 9. Peripheral neuropathy. 10. Hypertension. FAMILY HISTORY: Denies any premature coronary artery disease or sudden cardiac . SOCIAL HISTORY: The patient is a lifelong smoker, quit 3 or 4 years ago. Denies alcohol or recreational drug use. He lives at home with his . REVIEW OF SYSTEMS: As per HPI, all other review of systems are reviewed and negative at this time. ALLERGIES: No known drug allergies. MEDICATIONS AN OUTPATIENT: 1. Aspirin 325 mg b.i.d. 2. Lisinopril 5 mg daily. 3. Atorvastatin 40 mg daily. 4. Cardizem CD 300 mg daily. 5. Symbicort b.i.d. 6. VESIcare daily. 7. Janumet b.i.d. 8. Flomax daily. 9. Proscar daily. PHYSICAL EXAMINATION: VITALS: Temperature 36.6, pulse 83, respiratory rate 12 and blood pressure 110/67. GENERAL: Awake, alert, oriented x3, in no acute distress after receiving two nitroglycerins. HEENT: Normocephalic, atraumatic. Pupils are equal, round, and reactive to light and accommodation. Extraocular muscles are intact. Anicteric sclerae. Moist mucous membranes. NECK: No JVD, no bruit. CARDIOVASCULAR: Regular. Positive S4. Normal S1 and S2. No S3. No murmurs, rubs or gallops. PULMONARY: Poor air movement bilaterally with scattered rhonchi. No rales or wheezing. ABDOMEN: Bowel sounds x4, soft. No rebound, guarding or tenderness. No organomegaly. No abdominal bruits palpated or auscultated. EXTREMITIES: No clubbing, cyanosis or edema. Has +2 pedal pulses bilaterally. SKIN: Warm and dry. TEST RESULTS: CTA of the chest and abdomen was read as; no evidence of bowel obstruction or free air, fecal retention, small bowel feces sign, emphysema, 31 mm infrarenal abdominal aortic aneurysm and small pericardial effusion. A 2D echocardiogram performed at the bedside was read as normal LV systolic function, EF of 60-65% with small loculated anterior pericardial effusion. LABORATORY STUDIES OF SIGNIFICANCE: Initial troponin of 0.033, followup 0.071; sodium 137; potassium 4.2; BUN 24 and creatinine 1.4. IMPRESSION: 1. Chest discomfort. 2. Abdominal discomfort, abdominal aortic aneurysm dissection ruled out. 3. Relative hypotension, improving with IV fluids. 4. Severe chronic obstructive pulmonary disease. 5. 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 6. Dural arteriovenous malformations status post embolizations and multiple angiograms. 7. Chronic kidney disease. 8. Diabetes. 9. Tobacco abuse. 10. Severe chronic obstructive pulmonary disease. RECOMMENDATIONS: It is my pleasure to see Mr. Penny in consultation today. From a cardiac standpoint, his EKG is nonischemic with concave ST segment changes and with only minimal troponin elevation and normal wall motion on echocardiogram. I do not believe this represents non-ST segment elevation [place], so at this time the patient will be treated with a nitroglycerin patch, he will be started on beta blockade, IV heparin anticoagulation and his enzymes will be trended. He will also be continued on his outpatient aspirin. Addendum: Aorta inadequately visualized with echocardiogram, this was discussed with primary team and I recommended that a noncontrast ct of the chest be performed at the same time as the ct of the abdomen for complete aortic visualization. Official report not available at the time of dictation. Official results were called to Dr. Prince and patient transferred [place] [facility] [place]. [place]
[2016-03-20] MEDS ORDERED: NITROGLYCERIN 0.1 MG/HR PATCH TD SCH (09:00)
[2016-03-20] MEDS ORDERED: ASPIRIN 81 MG ECTAB PO SCH (09:00)
[2016-03-20] MEDS ORDERED: CHOLECALCIFEROL 1000 INTER.UNIT TAB PO SCH (09:00)
[2016-03-20] MEDS ORDERED: ASPIRIN 325 MG ECTAB PO SCH (09:00)
[2016-03-20] MEDS ORDERED: CITALOPRAM 20 MG TAB PO SCH (09:00)
[2016-03-20] MEDS ORDERED: LISINOPRIL 5 MG TAB PO SCH (09:00)
== END 2016-03-19 17:00 | disposition short-term general hospital (02) ==
LOC: ENRESERVTM → ENRESERVDT → CANRESERV → EDBD 11:22 → C.EDC 11:24 → CANBEDREQ 18:41
DX: R07.2 Precordial pain (principal); I71.00 Dissection of unspecified site of aorta; F41.9 Anxiety disorder, unspecified; N18.3 Chronic kidney disease, stage 3 (moderate); I12.9 Hypertensive chronic kidney disease with stage 1 through stage 4 chronic kidney disease, or unspecified chronic kidney disease; J44.9 Chronic obstructive pulmonary disease, unspecified; E11.42 Type 2 diabetes mellitus with diabetic polyneuropathy; I50.30 Unspecified diastolic (congestive) heart failure; G40.909 Epilepsy, unspecified, not intractable, without status epilepticus; K21.9 Gastro-esophageal reflux disease without esophagitis; Z86.73 Personal history of transient ischemic attack (TIA), and cerebral infarction without residual deficits; E78.5 Hyperlipidemia, unspecified; M81.0 Age-related osteoporosis without current pathological fracture; Z83.3 Family history of diabetes mellitus; Z82.49 Family history of ischemic heart disease and other diseases of the circulatory system; Z87.891 Personal history of nicotine dependence